=== PATIENT | male | born 1930 | race Caucasian/White ===

== ENCOUNTER 2016-10-23 17:22 | Emergency (ER) | payer MEDICARE ==
[~2016-10-23] VITALS: Ht 175.3 cm; Wt 80.0 kg
[~2016-10-23 17:22] MED LIST: AMLO10 PO; ATEN1TAB74 PO; AVOD0.5C PO; GABA300 PO; MEST60TA PO; OMEP20CA5 PO; TAMS0.4C67 PO; VYTO10TA39 PO
[2016-10-23 17:24] VITALS: BP 186/74; PULSE 62; RESP 14; TEMP 98.2; O2SAT 96
[2016-10-23 18:04] LABS: BLOOD, URINE NEG (NEG); COMMENT (UR) CULT NOT INDICATED; CULTURE IF INDICATED CULT NOT INDICATED; GLUCOSE,URINE NEG (NEG); HYALINE CAST, URINE 2 /lpf (RARE); KETONE, URINE NEG (NEG); MUCUS URINE FEW /lpf (OCC); NITRITE,URINE NEG (NEG); URINE COLOR YELLOW (YELLW/STRAW)
== END 2016-10-23 22:00 | disposition left against medical advice (07) ==
LOC: NED 17:22
DX: Z53.21 Procedure and treatment not carried out due to patient leaving prior to being seen by health care provider (principal)
CPT/HCPCS: 81001; 99281